=== PATIENT | male | born 1955 | race African-American/Black ===

== ENCOUNTER 2017-01-06 19:41 | Emergency (ER) | payer OTHER ==
[2017-01-06] MEDS ORDERED: hydrOXYzine 25 MG TAB ONE (20:10)
[2017-01-06] MEDS ORDERED: predniSONE 20 MG TAB ONE (20:10)
== END 2017-01-06 20:35 | disposition home or self-care (01) ==
LOC: BURERS 19:41
DX: T63.441A Toxic effect of venom of bees, accidental (unintentional), initial encounter (principal); I10 Essential (primary) hypertension; Z79.899 Other long term (current) drug therapy
CPT/HCPCS: 99282; J7506